=== PATIENT | male | born 1995 | race Caucasian/White ===

== ENCOUNTER 2022-12-22 11:07 | Emergency (ER) | payer BC ==
[2022-12-22] MEDS ORDERED: Lidocaine 1% PF 2 ML SDV INJECT ONE (11:20)
[2022-12-22] MEDS ORDERED: Diphtheria,Pertussis(Acell),Tetanus Vaccine 0.5 ML Syringe IM ONE (11:20)
[2022-12-22 11:55] VITALS: BP 124/65; PULSE 74
== END 2022-12-22 11:58 | disposition home or self-care (01) ==
LOC: MW.ED 11:07
DX: S01.81XA Laceration without foreign body of other part of head, initial encounter (principal); Z23 Encounter for immunization; W22.8XXA Striking against or struck by other objects, initial encounter; Y92.89 Other specified places as the place of occurrence of the external cause; Y99.0 Civilian activity done for income or pay
CPT/HCPCS: 12011; 90471; 90715; 99282-25; 99283; J3490